=== PATIENT | male | born 1945 | race Caucasian/White ===

== ENCOUNTER 2024-12-20 08:55 | Inpatient (IN) | payer MEDICARE ==
[2024-12-20 10:04] LABS: Hematocrit 32.9 % (38.8-50.0); Hemoglobin 10.8 g/dL (13.5-17.5); Mean Corpuscular Hemoglobin 30.3 pg (27.0-33.0); Mean Corpuscular Volume 92.4 fL (81.2-95.1); Platelet Count 342 10x3/uL (150-450); Red Blood Cell (RBC) Count 3.56 10x6/uL (4.32-5.72); White Blood Cell (WBC) Count 32.78 10x3/uL (3.5-10.5)
[2024-12-20 10:14] LABS: ALT (SGPT) 51 U/L (Less than 45); AST (SGOT) 55 U/L (11-34); Albumin 2.0 g/dL (3.1-4.5); Alkaline Phosphatase 104 U/L (40-110); Anion Gap 15 mmol/L (10-20); BUN (Urea Nitrogen) 32 mg/dL (8.4-25.7); Bilirubin, Total 1.0 mg/dL (0.3-1.2); Calc. Creatinine Clearance 0 mL/min (70-130); Calcium 9.1 mg/dL (7.8-10.44); Carbon Dioxide 24 mmol/L (23-31); Chloride 101 mmol/L (98-107); Globulin 4.5 g/dL (2.4-3.5); Glucose 152 mg/dL (83-110); Lipase 29 U/L (8-78); Potassium 4.4 mmol/L (3.5-5.1); Sodium 136 mmol/L (136-145)
[2024-12-20 10:20] LABS: Troponin I Less than 0.010 ng/mL (< 0.028)
[2024-12-20 10:35] LABS: MDiff Complete? YES; Platelet Adequacy Comment Appears Adequate
[2024-12-20 10:36] LABS: Actual Bicarbonate (HCO3v) 25.2 mEq/L (22-28); Analyzer IN Cardio CS ER; Base Excess 0.9 mEq/L (-2 - +2); Calcium, Ionized (venous) 1.24 mmol/L (1.16-1.32); Chloride (VBG) 100 mmol/L (98-106); Critical Notified Whom: FERME; Hematocrit-VBG 35 % (42.0-52.0); Hemoglobin (Hb) 11.9 g/dL (12.6-17.4); Potassium (VBG) 3.92 mmol/L (3.70-5.30); Puncture Site Other Site; RapidComm Collect By LAB; Sodium 136 mmol/L (133-146)
[2024-12-20] MEDS ORDERED: Iopamidol 370 76% 100 ML VIAL ONE (10:36)
[2024-12-20] MEDS ORDERED: cefTRIAXone (ROCEPHIN) 2 GM VIAL ONE (10:40)
[2024-12-20] MEDS ORDERED: dilTIAZem 25 MG/5 ML VIAL ONE ×2 (10:40→13:18)
[2024-12-20 10:41] LABS: Glucose, Urine (Dipstick) Normal (Negative); Leukocyte Negative (Negative); Protein, Urine (Dipstick) 100 mg/dl (Neg-Trace); Specific Gravity, Urine 1.020 (1.005-1.030)
[2024-12-20 10:49] LABS: Bacteria/HPF 1+ HPF (None Seen); CAUTI Indications for Culture Pelvic or flank pain; RBC/HPF 0-3 HPF (0-3); WBC/HPF 0-3 HPF (0-3)
[2024-12-20 10:50] LABS: Urine Culture Reflex No No
[2024-12-20] MEDS ORDERED: Azithromycin 500 MG VIAL ONE (11:36)
[2024-12-20] MEDS ORDERED: Diltiazem HCl/D5W 0 ML ONE (13:18)
[2024-12-20] MEDS ORDERED: Senokot S 8.6-50 MG TAB PO PRN (14:32)
[2024-12-20] MEDS ORDERED: hydrALAZINE 20 MG/ML VIAL SLOW IVP PRN (14:32)
[2024-12-20] MEDS ORDERED: Acetaminophen 325 MG TAB PO PRN (14:32)
[2024-12-20] MEDS ORDERED: Ondansetron PF 4 MG/2 ML Vial IVP PRN (14:32)
[2024-12-20 16:01] LABS: Hematocrit 38.0 % (38.8-50.0); Hemoglobin 11.7 g/dL (13.5-17.5); Platelet Count 302 10x3/uL (150-450)
[2024-12-20] MEDS: Aspirin 81 mg Enteric Coated Tablet PO SCH (16:51)
[2024-12-20] MEDS: Communication Order-Pharmacy FS ONE (16:52)
[2024-12-20] MEDS: Enoxaparin 80 MG (0.8 mL) SYRINGE SC SCH (17:56)
[2024-12-20] MEDS ORDERED: Enoxaparin 80 MG (0.8 mL) SYRINGE SC SCH (21:00)
[2024-12-21] MEDS ORDERED: Vancomycin 1 GM in Premix 1 BAG IVPB SCH (01:45)
[2024-12-21] MEDS: VANCOMYCIN 1.75 GM/350 ML BAG 1.75 GM in Premix 1 BAG IVPB SCH (03:26)
[2024-12-21 06:27] LABS: Strep pneumo Urine Ag NEGATIVE (NEGATIVE)
[2024-12-21 06:41] LABS: Anion Gap 13 mmol/L (10-20); BUN (Urea Nitrogen) 26 mg/dL (8.4-25.7); Calc. Creatinine Clearance 84 mL/min (70-130); Calcium 9.6 mg/dL (7.8-10.44); Carbon Dioxide 24 mmol/L (23-31); Cardiac Risk 4.8 (Less than 4.5); Chloride 105 mmol/L (98-107); Cholesterol 76 mg/dl (< 200 Desired); Glucose 120 mg/dL (83-110); HDL Cholesterol 16 mg/dL (>60 Neg Risk); LDL Cholesterol, Calculated 46 mg/dL; Potassium 3.8 mmol/L (3.5-5.1); Sodium 138 mmol/L (136-145); Triglycerides 68 mg/dL (Less than 150)
[2024-12-21 06:43] LABS: Hematocrit 32.2 % (38.8-50.0); Hemoglobin 10.3 g/dL (13.5-17.5); Mean Corpuscular Hemoglobin 29.9 pg (27.0-33.0); Mean Corpuscular Volume 93.6 fL (81.2-95.1); Platelet Count 321 10x3/uL (150-450); Red Blood Cell (RBC) Count 3.44 10x6/uL (4.32-5.72); White Blood Cell (WBC) Count 29.31 10x3/uL (3.5-10.5)
[2024-12-21 06:45] LABS: MDiff Complete? YES; Nucleated RBC (Manual Ct) 1 % (0); Platelet Adequacy Comment Appears Adequate; RBC Morphology Within Normal Limits
[2024-12-21] MEDS ORDERED: Aspirin 81 mg Enteric Coated Tablet PO SCH (09:00)
[2024-12-21] MEDS ORDERED: cefTRIAXone\\ROCEPHIN 1 GM in Sodium Chloride 0.9% 100 ML IVPB SCH (11:00)
[2024-12-21] MEDS: Azithromycin 500 MG in Sodium Chloride 0.9% 250 ML 250 ML IVPB SCH (12:09)
[2024-12-21] MEDS ORDERED: Vancomycin 1 GM in Sodium Chloride 0.9% 250 ML 250 ML IVPB SCH (13:00)
[2024-12-21] MEDS: Vancomycin HCl 750 MG in Sodium Chloride 0.9% 250 ML 250 ML IVPB SCH (13:39)
[2024-12-21] MEDS: Apixaban 5 MG TAB PO SCH (21:01)
[2024-12-22 05:27] LABS: Hematocrit 32.9 % (38.8-50.0); Hemoglobin 10.6 g/dL (13.5-17.5); Mean Corpuscular Hemoglobin 29.9 pg (27.0-33.0); Mean Corpuscular Volume 92.7 fL (81.2-95.1); Platelet Count 358 10x3/uL (150-450); Red Blood Cell (RBC) Count 3.55 10x6/uL (4.32-5.72); White Blood Cell (WBC) Count 28.80 10x3/uL (3.5-10.5)
[2024-12-22 05:34] LABS: Vancomycin, Random 13.5 ug/mL (See Comment)
[2024-12-22 05:35] LABS: Anion Gap 10 mmol/L (10-20); BUN (Urea Nitrogen) 24 mg/dL (8.4-25.7); Calc. Creatinine Clearance 85 mL/min (70-130); Calcium 9.4 mg/dL (7.8-10.44); Carbon Dioxide 26 mmol/L (23-31); Chloride 105 mmol/L (98-107); Glucose 118 mg/dL (83-110); Potassium 3.4 mmol/L (3.5-5.1); Sodium 138 mmol/L (136-145)
[2024-12-22 05:40] LABS: MDiff Complete? YES; Platelet Adequacy Comment Appears Adequate; RBC Morphology Within Normal Limits
[2024-12-22] MEDS: Folic Acid 1 MG TAB PO SCH (08:04)
[2024-12-22] MEDS: Vancomycin 1 GM in Sodium Chloride 0.9% 250 ML 250 ML IVPB SCH (08:04)
[2024-12-22 10:53] LABS: Magnesium 2.1 mg/dL (1.6-2.6)
[2024-12-22] MEDS: Melatonin 3 MG TAB PO PRN (19:41)
[2024-12-22] MEDS: dilTIAZem 25 MG/5 ML VIAL SLOW IVP SCH (22:05)
[2024-12-23 03:50] LABS: Vancomycin, Random 6.1 ug/mL (See Comment)
[2024-12-23 03:52] LABS: Anion Gap 10 mmol/L (10-20); BUN (Urea Nitrogen) 21 mg/dL (8.4-25.7); Calc. Creatinine Clearance 97 mL/min (70-130); Calcium 9.1 mg/dL (7.8-10.44); Carbon Dioxide 25 mmol/L (23-31); Chloride 107 mmol/L (98-107); Glucose 133 mg/dL (83-110); Magnesium 2.0 mg/dL (1.6-2.6); Potassium 3.2 mmol/L (3.5-5.1); Sodium 139 mmol/L (136-145)
[2024-12-23 04:03] LABS: #Basophils 0.05 10x3/uL (0.0-0.2); #Eosinophils 0.08 10x3/uL (0.0-0.5); #Monocytes 1.54 10x3/uL (0.0-1.1); #Neutrophils 21.58 10x3/uL (1.5-8.4); %Basophils 0.2 % (0.0-2.0); %Eosinophils 0.3 % (0.0-6.0); %Lymphocytes 5.3 % (18.0-47.0); %Monocytes 6.2 % (0.0-10.0); %Neutrophils 86.6 % (40.0-75.0); Hematocrit 30.2 % (38.8-50.0); Hemoglobin 9.9 g/dL (13.5-17.5); Mean Corpuscular Hemoglobin 29.9 pg (27.0-33.0); Mean Corpuscular Volume 91.2 fL (81.2-95.1); Platelet Count 357 10x3/uL (150-450); Red Blood Cell (RBC) Count 3.31 10x6/uL (4.32-5.72); White Blood Cell (WBC) Count 24.93 10x3/uL (3.5-10.5)
[2024-12-23] MEDS: VANCOMYCIN 1.25 GM/250 ML BAG 1.25 GM in Premix 1 BAG IVPB SCH (05:24)
[2024-12-23] MEDS: dilTIAZem 25 MG/5 ML VIAL SLOW IVP SCH (05:24)
[2024-12-23] MEDS ORDERED: Sodium Chloride 3% (15 ML) NEB NEB SCH (10:30)
[2024-12-24] MEDS: Furosemide 40 MG (4 mL) VIAL ONE (03:38)
[2024-12-24 03:41] LABS: Actual Bicarbonate (HCO3a) 25.8 mEq/L (22-28); Analyzer IN Cardio CS ICU; Base Excess (BEa) 1.4 mEq/L (-2.0 to +3.0); CO2 Tension 39.6 mmHg (35.0-45.0); Calcium, Ionized (arterial) 1.30 mmol/L (1.12-1.30); Hematocrit-ABG 35 % (42.0-52.0); Hemoglobin (Hb) 12.0 g/dL (14.0-18.0); O2 Tension (PaO2), arterial 55.6 mmHg (> 70.0); Potassium - ABG Lab 2.91 mmol/L (3.70-5.30); Puncture Site Right Radial artery; pH, Arterial 7.431 (7.35-7.45)
[2024-12-24] MEDS: Furosemide 40 MG (4 mL) VIAL SLOW IVP SCH (04:34)
[2024-12-24] MEDS ORDERED: Mometasone 200 MCG/Formoterol 5 MCG 60 PUFF INHALER INH SCH (06:30)
[2024-12-24 07:08] LABS: #Basophils Less than 0.03 10x3/uL (0.0-0.2); #Eosinophils 0.04 10x3/uL (0.0-0.5); #Monocytes 1.01 10x3/uL (0.0-1.1); #Neutrophils 17.16 10x3/uL (1.5-8.4); %Basophils 0.1 % (0.0-2.0); %Eosinophils 0.2 % (0.0-6.0); %Lymphocytes 5.9 % (18.0-47.0); %Monocytes 5.1 % (0.0-10.0); %Neutrophils 87.3 % (40.0-75.0); Hematocrit 32.4 % (38.8-50.0); Hemoglobin 10.2 g/dL (13.5-17.5); Mean Corpuscular Hemoglobin 29.1 pg (27.0-33.0); Mean Corpuscular Volume 92.3 fL (81.2-95.1); Platelet Count 350 10x3/uL (150-450); Red Blood Cell (RBC) Count 3.51 10x6/uL (4.32-5.72); White Blood Cell (WBC) Count 19.65 10x3/uL (3.5-10.5)
[2024-12-24 07:34] LABS: Vancomycin, Random 35.4 ug/mL (See Comment)
[2024-12-24 07:38] LABS: ALT (SGPT) 45 U/L (Less than 45); AST (SGOT) 53 U/L (11-34); Albumin 1.5 g/dL (3.1-4.5); Alkaline Phosphatase 118 U/L (40-110); Anion Gap 15 mmol/L (10-20); BUN (Urea Nitrogen) 18 mg/dL (8.4-25.7); Bilirubin, Total 0.5 mg/dL (0.3-1.2); Calc. Creatinine Clearance 90 mL/min (70-130); Calcium 8.9 mg/dL (7.8-10.44); Carbon Dioxide 27 mmol/L (23-31); Chloride 104 mmol/L (98-107); Globulin 3.9 g/dL (2.4-3.5); Glucose 130 mg/dL (83-110); Potassium 2.9 mmol/L (3.5-5.1); Sodium 143 mmol/L (136-145)
[2024-12-24 09:02] LABS: Magnesium 1.9 mg/dL (1.6-2.6)
[2024-12-24] MEDS ORDERED: Electrolyte Replacement Protocol 1 EACH FS SCH (10:45)
[2024-12-24] MEDS ORDERED: PHOS-NAK 1 PKT PACK PO PRN (11:30)
[2024-12-24 12:04] LABS: Vancomycin, Random 25.1 ug/mL (See Comment)
[2024-12-24] MEDS: Potassium Chloride 20 MEQ in Premix 1 BAG IVPB SCH (12:57)
[2024-12-24] MEDS: Vancomycin 1 GM in Sodium Chloride 0.9% 250 ML 250 ML IVPB SCH (18:40)
[2024-12-25 03:47] LABS: #Basophils 0.03 10x3/uL (0.0-0.2); #Eosinophils 0.11 10x3/uL (0.0-0.5); #Monocytes 1.03 10x3/uL (0.0-1.1); #Neutrophils 12.46 10x3/uL (1.5-8.4); %Basophils 0.2 % (0.0-2.0); %Eosinophils 0.7 % (0.0-6.0); %Lymphocytes 8.8 % (18.0-47.0); %Monocytes 6.8 % (0.0-10.0); %Neutrophils 82.2 % (40.0-75.0); Hematocrit 30.8 % (38.8-50.0); Hemoglobin 9.8 g/dL (13.5-17.5); Mean Corpuscular Hemoglobin 29.4 pg (27.0-33.0); Mean Corpuscular Volume 92.5 fL (81.2-95.1); Platelet Count 351 10x3/uL (150-450); Red Blood Cell (RBC) Count 3.33 10x6/uL (4.32-5.72); White Blood Cell (WBC) Count 15.16 10x3/uL (3.5-10.5)
[2024-12-25 04:02] LABS: Anion Gap 13 mmol/L (10-20); BUN (Urea Nitrogen) 20 mg/dL (8.4-25.7); Calc. Creatinine Clearance 91 mL/min (70-130); Calcium 8.9 mg/dL (7.8-10.44); Carbon Dioxide 27 mmol/L (23-31); Chloride 107 mmol/L (98-107); Glucose 141 mg/dL (83-110); Magnesium 2.0 mg/dL (1.6-2.6); Potassium 3.0 mmol/L (3.5-5.1); Sodium 144 mmol/L (136-145)
[2024-12-25] MEDS: Potassium Chloride 20 MEQ in Premix 1 BAG IVPB PRN (04:09)
[2024-12-25 07:14] LABS: A. flavus Negative (Neg:<1:1); A. fumigatus Negative (Neg:<1:1); A. niger Negative (Neg:<1:1)
[2024-12-25] MEDS: Multivit, Therapeutic 1 TAB PO SCH (10:43)
[2024-12-25] MEDS: Vancomycin 1 GM in Sodium Chloride 0.9% 250 ML 250 ML IVPB SCH (20:48)
[2024-12-26 03:48] LABS: #Basophils 0.06 10x3/uL (0.0-0.2); #Eosinophils 0.16 10x3/uL (0.0-0.5); #Monocytes 0.99 10x3/uL (0.0-1.1); #Neutrophils 13.35 10x3/uL (1.5-8.4); %Basophils 0.4 % (0.0-2.0); %Eosinophils 1.0 % (0.0-6.0); %Lymphocytes 9.9 % (18.0-47.0); %Monocytes 5.9 % (0.0-10.0); %Neutrophils 79.6 % (40.0-75.0); Hematocrit 31.9 % (38.8-50.0); Hemoglobin 10.2 g/dL (13.5-17.5); Mean Corpuscular Hemoglobin 29.4 pg (27.0-33.0); Mean Corpuscular Volume 91.9 fL (81.2-95.1); Platelet Count 412 10x3/uL (150-450); Red Blood Cell (RBC) Count 3.47 10x6/uL (4.32-5.72); White Blood Cell (WBC) Count 16.76 10x3/uL (3.5-10.5)
[2024-12-26 03:59] LABS: Vancomycin, Random 20.8 ug/mL (See Comment)
[2024-12-26 07:42] LABS: Anion Gap 14 mmol/L (10-20); BUN (Urea Nitrogen) 16 mg/dL (8.4-25.7); Calc. Creatinine Clearance 96 mL/min (70-130); Calcium 9.1 mg/dL (7.8-10.44); Carbon Dioxide 26 mmol/L (23-31); Chloride 106 mmol/L (98-107); Glucose 107 mg/dL (83-110); Potassium 2.9 mmol/L (3.5-5.1); Sodium 143 mmol/L (136-145)
[2024-12-26 14:42] LABS: Potassium 3.1 mmol/L (3.5-5.1)
[2024-12-26] MEDS ORDERED: Guaifenesin DM 100-10/5 ML UDCUP PO PRN (16:28)
[2024-12-26] MEDS: Benzonatate 100 MG CAP PO SCH ×2 (19:13→21:19)
[2024-12-26 19:40] LABS: Potassium 3.2 mmol/L (3.5-5.1)
[2024-12-27 02:52] LABS: #Basophils 0.07 10x3/uL (0.0-0.2); #Eosinophils 0.26 10x3/uL (0.0-0.5); #Monocytes 0.78 10x3/uL (0.0-1.1); #Neutrophils 12.02 10x3/uL (1.5-8.4); %Basophils 0.4 % (0.0-2.0); %Eosinophils 1.6 % (0.0-6.0); %Lymphocytes 13.6 % (18.0-47.0); %Monocytes 4.9 % (0.0-10.0); %Neutrophils 75.5 % (40.0-75.0); Hematocrit 31.8 % (38.8-50.0); Hemoglobin 10.3 g/dL (13.5-17.5); Mean Corpuscular Hemoglobin 29.4 pg (27.0-33.0); Mean Corpuscular Volume 90.9 fL (81.2-95.1); Platelet Count 390 10x3/uL (150-450); Red Blood Cell (RBC) Count 3.50 10x6/uL (4.32-5.72); White Blood Cell (WBC) Count 15.94 10x3/uL (3.5-10.5)
[2024-12-27 03:17] LABS: Anion Gap 11 mmol/L (10-20); BUN (Urea Nitrogen) 18 mg/dL (8.4-25.7); Calc. Creatinine Clearance 88 mL/min (70-130); Calcium 9.1 mg/dL (7.8-10.44); Carbon Dioxide 26 mmol/L (23-31); Glucose 130 mg/dL (83-110); Magnesium 2.0 mg/dL (1.6-2.6); Potassium 3.3 mmol/L (3.5-5.1); Sodium 141 mmol/L (136-145)
[2024-12-27 03:22] LABS: Chloride 107 mmol/L (98-107)
[2024-12-27] MEDS: Thiamine 100 MG TAB PO SCH (09:50)
[2024-12-27 11:34] LABS: Potassium 3.1 mmol/L (3.5-5.1)
[2024-12-27] MEDS: Magnesium 2 GM/50 ML(in water) 2 GM in Premix 1 BAG IVPB SCH (12:33)
[2024-12-27 15:36] VITALS: BMI 22.7
[2024-12-28 04:41] VITALS: BMI 22.8
[2024-12-28 05:35] LABS: Potassium 3.4 mmol/L (3.5-5.1)
[2024-12-28 05:40] LABS: Vancomycin, Random 16.4 ug/mL (See Comment)
[2024-12-28] MEDS: QUEtiapine 25 MG TAB PO SCH (20:07)
[2024-12-29 06:45] LABS: Hematocrit 30.6 % (38.8-50.0); Hemoglobin 10.0 g/dL (13.5-17.5); Platelet Count 383 10x3/uL (150-450)
[2024-12-29 07:01] LABS: Anion Gap 12 mmol/L (10-20); BUN (Urea Nitrogen) 11 mg/dL (8.4-25.7); Calc. Creatinine Clearance 0 mL/min (70-130); Calcium 8.8 mg/dL (7.8-10.44); Carbon Dioxide 25 mmol/L (23-31); Chloride 105 mmol/L (98-107); Glucose 109 mg/dL (83-110); Magnesium 2.0 mg/dL (1.6-2.6); Potassium 3.5 mmol/L (3.5-5.1); Sodium 138 mmol/L (136-145)
[2024-12-29] MEDS: FLU (Fluad Triv) 25-26 (65UP)PF 45 MCG/0.5 ML Syringe IM ONE (15:23)
[2024-12-30 04:46] LABS: #Basophils 0.06 10x3/uL (0.0-0.2); #Eosinophils 0.24 10x3/uL (0.0-0.5); #Monocytes 0.89 10x3/uL (0.0-1.1); #Neutrophils 13.64 10x3/uL (1.5-8.4); %Basophils 0.3 % (0.0-2.0); %Eosinophils 1.4 % (0.0-6.0); %Lymphocytes 12.5 % (18.0-47.0); %Monocytes 5.1 % (0.0-10.0); %Neutrophils 78.7 % (40.0-75.0); Hematocrit 29.8 % (38.8-50.0); Hemoglobin 9.6 g/dL (13.5-17.5); Mean Corpuscular Hemoglobin 29.3 pg (27.0-33.0); Mean Corpuscular Volume 90.9 fL (81.2-95.1); Platelet Count 349 10x3/uL (150-450); Red Blood Cell (RBC) Count 3.28 10x6/uL (4.32-5.72); White Blood Cell (WBC) Count 17.34 10x3/uL (3.5-10.5)
[2024-12-30 04:58] LABS: Vancomycin, Random 17.5 ug/mL (See Comment)
[2024-12-30 04:59] LABS: Anion Gap 11 mmol/L (10-20); BUN (Urea Nitrogen) 13 mg/dL (8.4-25.7); Calc. Creatinine Clearance 0 mL/min (70-130); Calcium 8.8 mg/dL (7.8-10.44); Carbon Dioxide 24 mmol/L (23-31); Chloride 104 mmol/L (98-107); Glucose 107 mg/dL (83-110); Potassium 3.4 mmol/L (3.5-5.1); Sodium 136 mmol/L (136-145)
[2024-12-30 10:48] LABS: Potassium 3.5 mmol/L (3.5-5.1)
[2024-12-30] MEDS: Floranex 1 GM Packet PO SCH (12:23)
[2024-12-31 04:22] LABS: #Basophils 0.07 10x3/uL (0.0-0.2); #Eosinophils 0.27 10x3/uL (0.0-0.5); #Monocytes 0.98 10x3/uL (0.0-1.1); #Neutrophils 14.14 10x3/uL (1.5-8.4); %Basophils 0.4 % (0.0-2.0); %Eosinophils 1.5 % (0.0-6.0); %Lymphocytes 12.6 % (18.0-47.0); %Monocytes 5.4 % (0.0-10.0); %Neutrophils 78.5 % (40.0-75.0); Hematocrit 31.9 % (38.8-50.0); Hemoglobin 10.3 g/dL (13.5-17.5); Mean Corpuscular Hemoglobin 29.4 pg (27.0-33.0); Mean Corpuscular Volume 91.1 fL (81.2-95.1); Platelet Count 367 10x3/uL (150-450); Red Blood Cell (RBC) Count 3.50 10x6/uL (4.32-5.72); White Blood Cell (WBC) Count 18.03 10x3/uL (3.5-10.5)
[2024-12-31 04:38] LABS: Anion Gap 12 mmol/L (10-20); BUN (Urea Nitrogen) 12 mg/dL (8.4-25.7); Calc. Creatinine Clearance 0 mL/min (70-130); Calcium 9.3 mg/dL (7.8-10.44); Carbon Dioxide 23 mmol/L (23-31); Chloride 104 mmol/L (98-107); Glucose 104 mg/dL (83-110); Potassium 4.0 mmol/L (3.5-5.1); Sodium 135 mmol/L (136-145)
[2024-12-31 08:29] LABS: Magnesium 2.0 mg/dL (1.6-2.6)
[2024-12-31] MEDS: Floranex 1 GM Packet PO SCH (08:51)
[2024-12-31] MEDS: Azithromycin 500 MG in Sodium Chloride 0.9% 250 ML 250 ML IVPB SCH (12:23)
[2024-12-31] MEDS: Magnesium 2 GM/50 ML(in water) 2 GM in Premix 1 BAG IVPB PRN (12:23)
[2025-01-01 05:17] LABS: #Basophils 0.06 10x3/uL (0.0-0.2); #Eosinophils 0.27 10x3/uL (0.0-0.5); #Monocytes 0.89 10x3/uL (0.0-1.1); #Neutrophils 11.55 10x3/uL (1.5-8.4); %Basophils 0.4 % (0.0-2.0); %Eosinophils 1.8 % (0.0-6.0); %Lymphocytes 13.8 % (18.0-47.0); %Monocytes 5.9 % (0.0-10.0); %Neutrophils 77.0 % (40.0-75.0); Hematocrit 30.7 % (38.8-50.0); Hemoglobin 10.1 g/dL (13.5-17.5); Mean Corpuscular Hemoglobin 29.7 pg (27.0-33.0); Mean Corpuscular Volume 90.3 fL (81.2-95.1); Platelet Count 338 10x3/uL (150-450); Red Blood Cell (RBC) Count 3.40 10x6/uL (4.32-5.72); White Blood Cell (WBC) Count 15.02 10x3/uL (3.5-10.5)
[2025-01-01 05:35] LABS: Anion Gap 9 mmol/L (10-20); BUN (Urea Nitrogen) 16 mg/dL (8.4-25.7); Calc. Creatinine Clearance 0 mL/min (70-130); Calcium 8.9 mg/dL (7.8-10.44); Carbon Dioxide 24 mmol/L (23-31); Chloride 105 mmol/L (98-107); Glucose 102 mg/dL (83-110); Magnesium 2.3 mg/dL (1.6-2.6); Potassium 4.1 mmol/L (3.5-5.1); Sodium 134 mmol/L (136-145)
[2025-01-01 17:20] VITALS: BP 139/77; TEMP 98.3
== END 2025-01-01 18:31 | DRG 871 ==
LOC: CSHERS 08:55 → CSHICU 14:34 → CSHTELE 12-27 19:25
PROVIDERS: ADMIT Internal Medicine; ATTEND Internal Medicine
PROC: 3E03329 Introduction of Other Anti-infective into Peripheral Vein, Percutaneous Approach (ICD-10-PCS; 2024-12-21)
PROC: 02HV33Z Insertion of Infusion Device into Superior Vena Cava, Percutaneous Approach (ICD-10-PCS; principal; 2024-12-22)
PROC: B548ZZA Ultrasonography of Superior Vena Cava, Guidance (ICD-10-PCS; 2024-12-22)
PROC: B5181ZA Fluoroscopy of Superior Vena Cava using Low Osmolar Contrast, Guidance (ICD-10-PCS; 2024-12-22)
DX: A41.9 Sepsis, unspecified organism (principal); G93.41 Metabolic encephalopathy; J18.8 Other pneumonia, unspecified organism; J69.0 Pneumonitis due to inhalation of food and vomit; J96.01 Acute respiratory failure with hypoxia; I48.20 Chronic atrial fibrillation, unspecified; I82.409 Acute embolism and thrombosis of unspecified deep veins of unspecified lower extremity; F10.139 Alcohol abuse with withdrawal, unspecified; R65.20 Severe sepsis without septic shock; Z79.01 Long term (current) use of anticoagulants; I48.0 Paroxysmal atrial fibrillation; Z98.890 Other specified postprocedural states; F17.210 Nicotine dependence, cigarettes, uncomplicated; I71.21 Aneurysm of the ascending aorta, without rupture; R53.81 Other malaise; J44.9 Chronic obstructive pulmonary disease, unspecified; E87.6 Hypokalemia; R91.1 Solitary pulmonary nodule; Z79.82 Long term (current) use of aspirin
CPT/HCPCS: 36415; 36573; 36600; 70450; 70551; 71045; 71275; 74177; 80048; 80053; 80061; 80202; 81001; 82805; 83036; 83605; 83690; 83735; 83880; 84100; 84132; 84145; 84484; 85014; 85018; 85025; 85049; 85379; 86140; 86480; 86606; 86635; 87040; 87070; 87081; 87086; 87102; 87116; 87205; 87206; 87428; 87449; 93005; 93010; 93306; 94640; 94760; 94762; 96374; 96375; C1751; J0456; J0696; J1650; J1940; J2543; J3373; J3375; J3411; J3475; J3480; J3486; J7030; J7050; Q9967